=== PATIENT | female | born 1970 | race American Indian/Alaskan Native ===

== ENCOUNTER 2017-04-21 05:43 | Inpatient (IN) | payer BC ==
[~2017-04-21 05:43] MED LIST: APRESOLINE IV PRN; MYLICON PO PRN; REGLAN IV PRN; TRANSDERM-SCOP TD SCH; ZOFRAN IV PRN
[2017-04-21] MEDS ORDERED: NACL BACTERIOSTATIC INFILTRATI ONE (06:36)
[2017-04-21] MEDS ORDERED: MARCAINE 0.5% 30 ML INFILTRATI ONE (07:00)
[2017-04-21] MEDS ORDERED: FLAGYL 500 MG/100 ML 500 MG/100 ML BAG IV NR (07:00)
[2017-04-21] MEDS ORDERED: XYLOCAINE 1% 20 mL ONE (07:00)
[2017-04-21] MEDS ORDERED: LOVENOX SUB-Q NR (07:00)
--- NOTE | 2017-04-21 07:07 | Anesthesia Consultation ---
Anesthesia Consult and Med Hx Date of service: 04/21/17 - Airway Anesthetic Teeth Evaluation: Good ROM Head & Neck: Adequate Mental/Hyoid Distance: Adequate Mallampati Class: Class II Intubation Access Assessment: Probably Good - Pulmonary Exam CTA: Yes - Cardiac Exam Cardiac Exam: RRR - Pre-Operative Health Status ASA Pre-Surgery Classification: ASA3 Proposed Anesthetic Plan: General - Central Nervous System Hx Psychiatric Problems: No - Gastrointestinal Hx Ulcer: Yes - Other Systems Hx Alcohol Use: Yes (OCCAS) Hx Substance Use: No Hx Cancer: No Hx Obesity: Yes - Additional Comments Anesthesia Medical History Comments: Obese but otherwise healthy
--- NOTE | 2017-04-21 07:07 | Anesthesia Day of Surgery ---
Anesthesia Day of Surgery - Day of Surgery Patient Examined: Yes Patient H&P Reviewed: Yes Patient is NPO: Yes
[2017-04-21] MEDS ORDERED: WATER FOR IRRIG STERILE IR ONE (07:20)
[2017-04-21] MEDS ORDERED: XYLOCAINE 1% 20 mL INFILTRATI ONE (07:26)
[2017-04-21] MEDS ORDERED: NACL 0.9% IR ONE (07:26)
[2017-04-21] MEDS ORDERED: MARCAINE 0.5% INFILTRATI ONE (07:26)
[2017-04-21] MEDS ORDERED: SUBLIMAZE ONE (07:28)
[2017-04-21] MEDS ORDERED: QUELICIN ONE (07:29)
[2017-04-21] MEDS ORDERED: XYLOCAINE MPF 2% ONE (07:29)
[2017-04-21] MEDS ORDERED: DIPRIVAN 10 MG/ML IV ONE (07:29)
[2017-04-21] MEDS ORDERED: VERSED IV NR (08:00)
[2017-04-21] MEDS ORDERED: PEPCID IV NR (08:00)
[2017-04-21] MEDS ORDERED: LEVAQUIN 500MG/100ML 500 MG/100 ML BAG IV ONE (08:01)
[2017-04-21] MEDS ORDERED: ePHEDrine SULFATE ONE (08:05)
[2017-04-21] MEDS ORDERED: ZOFRAN ONE (09:10)
[2017-04-21] MEDS ORDERED: TORADOL ONE (09:24)
[2017-04-21] MEDS ORDERED: NEOSTIGMINE ONE (09:30)
[2017-04-21] MEDS ORDERED: ROBINUL ONE (09:30)
[2017-04-21] MEDS: MORPHINE IV PRN ×4 (09:44→21:01)
[2017-04-21] MEDS ORDERED: LOVENOX SUB-Q SCH (10:00)
--- NOTE | 2017-04-21 10:26 | Post Anesthesia Evaluation ---
- Post Anesthesia Evaluation Patient Participated: Yes Airway Patent: Yes Stable Respiratory Function: Yes Temp > 96.8F: Yes Pain Manageable: Yes Adequeate Hydration: Yes Anesthesia Complications: No
[2017-04-21] MEDS: LACTATED RINGERS 1,000 ML IV SCH ×3 (12:16→22:45)
[2017-04-21] MEDS: NORCO PO PRN (15:45)
[2017-04-22] MEDS: MORPHINE IV PRN (04:00)
[2017-04-22 06:30] LABS: Basophils % (Auto) 0.5 % (0.0-1.8); Hematocrit 31.1 % (30.3-42.9); Hemoglobin 9.9 gm/dl (10.1-14.3); Lymphocytes # (Auto) 1.3 K/mm3 (1.2-5.4); Lymphocytes % (Auto) 19.9 % (13.4-35.0); Mean Corpuscular HGB Conc 32 % (30-34); Mean Corpuscular Volume 77 fl (79-97); Monocytes # (Auto) 0.7 K/mm3 (0.0-0.8); Monocytes % (Auto) 10.8 % (0.0-7.3); Platelet Count 270 K/mm3 (140-440); Red Blood Count 4.04 M/mm3 (3.65-5.03); Red Cell Distribution Width 15.3 % (13.2-15.2)
[2017-04-22 06:32] LABS: Mean Corpuscular Hemoglobin 25 pg (28-32)
[2017-04-22 06:55] LABS: Alanine Aminotransferase 20 units/L (7-56); Albumin 3.2 g/dL (3.9-5); BUN/Creatinine Ratio 10; Blood Urea Nitrogen 6 mg/dL (7-17); Calcium 8.2 mg/dL (8.4-10.2); Hemolysis Index 0
[2017-04-22] MEDS: NORCO PO PRN ×2 (09:20→18:43)
[2017-04-22] MEDS ORDERED: LOVENOX SUB-Q SCH (10:00)
--- NOTE | 2017-04-22 10:32 | Progress Note ---
Assessment and Plan 46 y.o. F s/p GJ revision and BP limb lengthening. Pt doing well. tolerated liquids. Denies n/v. H/H 9.9 - likley dilutional. no signs of bleeding via vs For dc today Subjective Patient Reports: Positive: feels better, voiding w/o difficulty, flatus, no bowel movement. Negative: vomiting Narrative: No acute events overnight. patient states that she rested well and is feeling "ok". No bowel movements at this time, but patient states that she has flatus and does not experience nausea, vomiting or cramping. Patient feels that pain is well controlled and ambulates well. Objective Vital Signs - 12hr 04/22/17 04/22/17 04/22/17 00:51 04:26 08:27 Temperature 98.3 F Pulse Rate 87 Respiratory 16 20 Rate Blood Pressure 106/64 121/74 Blood Pressure [Right] O2 Sat by Pulse 98 98 Oximetry 04/22/17 09:12 Temperature 98.9 F Pulse Rate 60 Respiratory 18 Rate Blood Pressure Blood Pressure 107/75 [Right] O2 Sat by Pulse 95 Oximetry - General physical appearance no distress, no pain - Eyes PERRL, normal occular movement - Respiratory normal expansion, normal respiratory effort, clear to auscultation - Labs 04/22/17 05:47 04/22/17 05:47 Diabetes panel 04/22/17 Range/Units 05:47 Sodium 141 (137-145) mmol/L Potassium 3.5 L (3.6-5.0) mmol/L Chloride 101.9 (98-107) mmol/L Carbon Dioxide 26 (22-30) mmol/L BUN 6 L (7-17) mg/dL Creatinine 0.6 L (0.7-1.2) mg/dL Glucose 94 (65-100) mg/dL Calcium 8.2 L (8.4-10.2) mg/dL AST 27 (5-40) units/L ALT 20 (7-56) units/L Alkaline Phosphatase 45 (35-129) units/L Total Protein 5.8 L (6.3-8.2) g/dL Albumin 3.2 L (3.9-5) g/dL Calcium panel 04/22/17 Range/Units 05:47 Calcium 8.2 L (8.4-10.2) mg/dL Albumin 3.2 L (3.9-5) g/dL Pituitary panel 04/22/17 Range/Units 05:47 Sodium 141 (137-145) mmol/L Potassium 3.5 L (3.6-5.0) mmol/L Chloride 101.9 (98-107) mmol/L Carbon Dioxide 26 (22-30) mmol/L BUN 6 L (7-17) mg/dL Creatinine 0.6 L (0.7-1.2) mg/dL Glucose 94 (65-100) mg/dL Calcium 8.2 L (8.4-10.2) mg/dL Adrenal panel 04/22/17 Range/Units 05:47 Sodium 141 (137-145) mmol/L Potassium 3.5 L (3.6-5.0) mmol/L Chloride 101.9 (98-107) mmol/L Carbon Dioxide 26 (22-30) mmol/L BUN 6 L (7-17) mg/dL Creatinine 0.6 L (0.7-1.2) mg/dL Glucose 94 (65-100) mg/dL Calcium 8.2 L (8.4-10.2) mg/dL Total Bilirubin 0.40 (0.1-1.2) mg/dL AST 27 (5-40) units/L ALT 20 (7-56) units/L Alkaline Phosphatase 45 (35-129) units/L Total Protein 5.8 L (6.3-8.2) g/dL Albumin 3.2 L (3.9-5) g/dL
[2017-04-22 13:02] VITALS: BP 130/86
--- NOTE | 2017-04-22 14:30 | Discharge Summary ---
Providers - Providers Date of Admission: 04/21/17 05:43 Attending physician: EVA MCKEON Hospitalization Condition: Good Procedures: lap GJ revision and BP limb lengthening Hospital course: 46 y.o. F admitted for lap GJ revision and BP limb lengthening. She tolerated the procedure well. On POD 1 she tolerated liquids and ambulated well. She was discharged on POD1 without issues. Her pain was controlled. Disposition: DC- TO HOME OR SELFCARE Core Measure Documentation - Palliative Care Palliative Care/ Comfort Measures: Not Applicable - Core Measures Any of the following diagnoses?: none Exam - Physical Exam Narrative exam: no change from prior - Constitutional Vitals: Temp Pulse Resp BP Pulse Ox 98.9 F 79 18 130/86 95 04/22/17 12:21 04/22/17 12:21 04/22/17 12:21 04/22/17 12:21 04/22/17 12:21 Plan Activity: other (no lifting >15lbs for 6 weeks ) Diet: clear liquids (sugar free ) Wound: keep clean and dry Additional Instructions: follow up for wound check.drink 64oz of fluid a day. Follow up with: ALMA GRANT [Other] - 7 Days
== END 2017-04-22 19:30 | disposition home or self-care (01) | DRG 327 ==
LOC: 3A 05:43 → EDSTATUS 10:30 → 3B-SURG 10:36
PROVIDERS: ADMIT Specialist; ATTEND Specialist
PROC: 0BQT4ZZ Repair Diaphragm, Percutaneous Endoscopic Approach (ICD-10-PCS; principal; 2017-04-21)
PROC: 0DQA4ZZ Repair Jejunum, Percutaneous Endoscopic Approach (ICD-10-PCS; 2017-04-21)
PROC: 0DQ64ZZ Repair Stomach, Percutaneous Endoscopic Approach (ICD-10-PCS; 2017-04-21)
PROC: 0D1B4ZH Bypass Ileum to Cecum, Percutaneous Endoscopic Approach (ICD-10-PCS; 2017-04-21)
DX: K91.1 Postgastric surgery syndromes (principal); E44.1 Mild protein-calorie malnutrition; K95.89 Other complications of other bariatric procedure; K21.9 Gastro-esophageal reflux disease without esophagitis; Z68.39 Body mass index [BMI] 39.0-39.9, adult; Z90.710 Acquired absence of both cervix and uterus; Z88.1 Allergy status to other antibiotic agents; K30 Functional dyspepsia; N39.3 Stress incontinence (female) (male); Y83.2 Surgical operation with anastomosis, bypass or graft as the cause of abnormal reaction of the patient, or of later complication, without mention of misadventure at the time of the procedure; Y92.89 Other specified places as the place of occurrence of the external cause; E66.01 Morbid (severe) obesity due to excess calories; Z98.84 Bariatric surgery status; K44.9 Diaphragmatic hernia without obstruction or gangrene
CPT/HCPCS: 36415; 80053; 82962; 85025; C9250; J0330; J1650; J1885; J1956; J2250; J2270; J2405; J2704; J2710; J3010; J7120